=== PATIENT | female | born 1985 | race American Indian/Alaskan Native ===

== ENCOUNTER 2017-02-08 06:57 | Emergency (ER) | payer BC ==
[2017-02-08] MEDS ORDERED: SODIUM CHLORIDE FLUSH 10ML SYR IVF ONE (07:30)
[2017-02-08] MEDS ORDERED: OMNIPAQUE 350 MG/ML, 100ML BOTTLE ONE (08:05)
[2017-02-08 08:34] VITALS: BP 131/90
[2017-02-08] MEDS ORDERED: FLUORESCEIN OPHTHALMIC 1 MG STRIP ONE (08:37)
== END 2017-02-08 09:30 | disposition home or self-care (01) ==
LOC: ED 07:24
DX: S02.32XA Fracture of orbital floor, left side, initial encounter for closed fracture (principal); S16.1XXA Strain of muscle, fascia and tendon at neck level, initial encounter; S10.91XA Abrasion of unspecified part of neck, initial encounter; Y04.0XXA Assault by unarmed brawl or fight, initial encounter; Y99.8 Other external cause status; Y93.89 Activity, other specified; Y92.009 Unspecified place in unspecified non-institutional (private) residence as the place of occurrence of the external cause
CPT/HCPCS: 70486; 70491; 99284; Q9967